=== PATIENT | male | born 1995 | race Caucasian/White ===

== ENCOUNTER 2018-09-14 10:40 | Emergency (ER) | payer SELFPAY ==
[~2018-09-14] VITALS: Ht 172.7 cm; Wt 79.2 kg
[2018-09-14] MEDS ORDERED: KETOROLAC 30 MG/1 ML ONE (11:09)
[2018-09-14] MEDS ORDERED: CYCLOBENZAPRINE 10 MG TABLET ONE (11:09)
[2018-09-14] MEDS ORDERED: KETOROLAC 30 MG/1 ML IM ONE (11:30)
[2018-09-14] MEDS ORDERED: CYCLOBENZAPRINE 10 MG TABLET PO ONE (11:30)
--- NOTE | 2018-09-14 12:10 | NUR ---
RECEIVED REPORT FROM [facility]. CARE ASSUMED. MEDICAL COMMUNICATION SPECIALIST AT BEDSIDE FOR SLING APPLICATION. CMS INTACT. VSS. AWAITING CHART AND DISCHARGE PAPERS FROM [facility].
[2018-09-14 12:12] VITALS: BP 116/71
== END 2018-09-14 12:16 | disposition home or self-care (01) ==
LOC: ED 12:03
DX: M25.511 Pain in right shoulder (principal); M62.830 Muscle spasm of back; F17.200 Nicotine dependence, unspecified, uncomplicated
CPT/HCPCS: 73030; 96372; 99283; J1885